=== PATIENT | male | born 1990 | race Caucasian/White ===

== ENCOUNTER 2017-02-11 22:45 | Emergency (ER) | payer BC ==
[2017-02-11 22:51] VITALS: TEMP 98.4
--- NOTE | 2017-02-11 23:11 | CPEKG ---
Heart Rate: 97 RR Interval: 619 P-R Interval: 164 QRSD Interval: 92 QT Interval: 328 QTC Interval: 417 P Spring: 52 QRS Spring: 37 T Wave Spring: 1 EKG Severity - NORMAL ECG - EKG Impression: SINUS RHYTHM Electronically Signed By: Raya Marquez 12-Feb-2017 06:18:30
--- NOTE | 2017-02-11 23:13 | EDPHY ---
H & P Stated Complaint: fainted after edibles Time Seen by Provider: 02/11/17 22:59 HPI/ROS: HPI The patient presents with fainting episodes which occurred just prior to arrival. He is brought in by friends after witnessed syncopal episodes this evening. He used to marijuana edibles, once at 5:30 a.m. and 2nd at 7:30 a.m.. He was feeling generally unwell, got up to go to the back and then lost consciousness. He stood up again and walked back to wear his friends were and this happened again. He denies any chest pain, shortness of breath, dizziness or diaphoresis. He has no prior history of fainting. He feels generally well now though is thirsty. REVIEW OF SYSTEMS Constitutional: No fever, no chills. Eyes: No discharge. ENT: No sore throat. Cardiovascular: No chest pain, no palpitations. Respiratory: No cough, no shortness of breath. Gastrointestinal: No abdominal pain, no vomiting. Genitourinary: No hematuria. Musculoskeletal: No back pain. Skin: No rashes. Neurological: No headache. PMHx: Healthy Soc Hx: Uses marijuana PHYSICAL General Appearance: Alert, no distress Eyes: Pupils equal and round no pallor or injection ENT, Mouth: Mucous membranes moist Respiratory: There are no retractions, lungs are clear to auscultation Cardiovascular: Regular rate and rhythm Gastrointestinal: Abdomen is soft and non-tender, no masses, bowel sounds normal Neurological: A&O, moves all extremities Skin: Warm and dry, no rashes Musculoskeletal: Neck is supple non tender Extremities: symmetrical, full range of motion Psychiatric: Patient is oriented X 3, there is no agitation Source: Patient, Family, EMS Exam Limitations: No limitations - Personal History Current Tetanus Diphtheria and Acellular Pertussis (TDAP): Yes - Medical/Surgical History Hx Asthma: No Hx Chronic Respiratory Disease: No Hx Diabetes: No Hx Cardiac Disease: No Hx Renal Disease: No Hx Cirrhosis: No Hx Alcoholism: No Hx HIV/AIDS: No Hx Splenectomy or Spleen Trauma: No Other PMH: denies - Social History Smoking Status: Never smoked Constitutional: Initial Vital Signs Temperature (C) 36.9 C 02/11/17 22:49 Heart Rate 106 H 02/11/17 22:49 Respiratory Rate 20 02/11/17 22:49 Blood Pressure 107/68 02/11/17 22:49 O2 Sat (%) 91 L 02/11/17 22:49 O2 Delivery Mode Room Air Allergies/Adverse Reactions: No Known Allergies Allergy (Unverified 02/11/17 22:49) Home Medications: Medication Instructions Recorded NK [No Known Home Meds] 02/11/17 Medical Decision Making - Diagnostics EKG Interpretation: EKG: Complete interpretation has been separately recorded in the [employer] archive. Summary impression: Normal sinus rhythm, no delta waves, QT interval is normal Differential Diagnosis: This is a 26-year-old male who presents with what sounds to be syncopal episode x2 after marijuana use. Differential diagnosis includes hypotension, arrhythmia, vasovagal syncope, marijuana use. In the emergency department, patient was able to tolerate fluids and drink plenty of water. His blood pressure improved and he felt much better. EKG showed no signs of arrhythmia. He will be discharged home with family. Departure - Departure Disposition: Home, Routine, Self-Care Clinical Impression: Marijuana abuse Syncope Qualifiers: Syncope type: vasovagal syncope Qualified Code(s): R55 - Syncope and collapse Condition: Good Instructions: Syncope (ED) Additional Instructions: Please make sure to drink plenty of fluids for the next 1 day. You should return to the emergency room if your worse in any way. Referrals: M[facility] PETERSEN [Other] - As per Instructions
[2017-02-11 23:49] VITALS: BP 122/76; PULSE 96; RESP 18; O2SAT 92
== END 2017-02-12 00:03 | disposition home or self-care (01) ==
DX: R55 Syncope and collapse (principal); F12.10 Cannabis abuse, uncomplicated